=== PATIENT | male | born 1985 | race Two or more races ===

== ENCOUNTER 2016-12-23 18:10 | Emergency (ER) | payer SELFPAY ==
[~2016-12-23] VITALS: Ht 160 cm; Wt 68.0 kg
[2016-12-23 18:21] VITALS: BP 127/86
== END 2016-12-23 21:09 | disposition left against medical advice (07) ==
LOC: ER 18:28
DX: R68.84 Jaw pain (principal); Z53.21 Procedure and treatment not carried out due to patient leaving prior to being seen by health care provider